=== PATIENT | male | born 1985 | race African-American/Black ===

== ENCOUNTER 2021-02-16 03:01 | Emergency (ER) | payer BC, SELFPAY ==
--- NOTE | ~2021-02-16 | XR_ITS ---
EXAMINATION: XR toe 1st LT min 2V EXAM DATE: 02/16/2021 03:40 INDICATION: Dropped wood block on big toe, bruising. Initial encounter. TECHNIQUE: Frontal, bilateral oblique projections left 1st toe obtained portably and reviewed. The la teral projection. There is no prior study for comparison. FINDINGS: There are no acute left 1st toe fractures or dislocations identified. There is no subcutan eous gas. The soft tissue is unremarkable. There are no radiopaque foreign bodies. IMPRESSION: No acute osseous findings. Reviewed, dictated and finalized at location A. IMPRESSION: No acute osseous findings.
[2021-02-16 03:08] VITALS: BP 140/96; PULSE 70; RESP 16; TEMP 36.7; O2SAT 99
--- NOTE | 2021-02-16 03:30 | PC.NURSE ---
pt ambulatory c slight limp to ED. reports dropping wooden block on his foot while wearing flip flops and attempting to move said block. Pt reports this happened at approx. 1700 yesterday evening. Pt unable to sleep d/t pain, so came to ED. pt's LEFT great toenail with visible discoloration and bruising noted. x-ray completed at bedside as ordered. MD in room at this time. will continue to monitor.
--- NOTE | 2021-02-16 03:38 | ED.LOWEXIN ---
HPI - Extremity Injury (Lower) General Chief Complaint: Extremity Injury, Lower Stated Complaint: dropped block of wood on left foot Time Seen by Provider: 02/16/21 03:23 Source: patient Mode of arrival: ambulatory Limitations: no limitations History of Present Illness HPI Narrative: 36-year-old with no major medical problems here with complaints of left great toe pain. He states that block of wood fell on his great toe having severe pain since last couple hours. He denies any other injuries. MD complaint: foot injury Injury: Left: toes Type of Injury: blunt Place: work Severity: moderate Relieving factors: nothing Exacerbating factors: nothing Context: direct blow Associated symptoms: swelling and ambulatory Other symptoms: none Related Data Allergies Allergy/AdvReac Type Severity Reaction Status Date / Time No medication allergy Allergy Unknown Uncoded 02/16/21 03:04 Cat Dander AdvReac Intermediate Dyspnea / Uncoded 02/16/21 03:03 SOB Cultivated Oat Pollen AdvReac Intermediate Dyspnea / Uncoded 02/16/21 03:03 SOB Review of Systems Review of Systems: All systems reviewed & are unremarkable except as noted in HPI and below Constitutional: Constitutional: Reports no additional constitutional complaints Eyes: Eyes: Reports no additional eye complaints ENT: Reports system reviewed and no additional complaints, except as documented Cardiovascular: Cardiovascular: Reports no additional cardiovascular complaints Respiratory: Respiratory: Reports no additional respiratory complaints Musculoskeletal: Musculoskeletal: Reports as per HPI Exam Narrative: Exam Narrative: GENERAL: Well-appearing, well-nourished, and in no acute distress. HEAD: Normocephalic, atraumatic. EYES: PERRLA and EOMI. ENT: Nares clear, no rhinorrhea or epistaxis. Mucous membranes moist. NECK: Supple. CHEST: Clear to auscultation. No respiratory distress. HEART: Regular rate and rhythm. No murmur heard. Normal peripheral pulses EXTREMITIES: Normal range of motion. No edema. Subungual hematoma of the left great toe, no deformity no fracture nail SKIN: Warm, dry, no rash. NEURO: No focal deficits. Alert and oriented x3. PSYCH: Normal mood and affect. Course Vital Signs Vital signs: Vital Signs Temperature 36.7 C 02/16/21 03:08 Pulse Rate 70 02/16/21 03:08 Respiratory Rate 16 02/16/21 03:08 Blood Pressure 140/96 H 02/16/21 03:08 Pulse Oximetry 99 06/08/21 03:08 Temperature 36.7 C 02/16/21 03:08 Pulse Rate 70 02/16/21 03:08 Respiratory Rate 16 02/16/21 03:08 Blood Pressure 140/96 H 02/16/21 03:08 Pulse Oximetry 99 02/16/21 03:08 Procedures Other Procedure Procedure 1: Other Procedure: Small bolus made with electrocautery blood drain. Patient tolerated procedure well. Sterile dressing applied. Discharge Plan Discharge Clinical Impression: Subungual hematoma of great toe of left foot Qualifiers: Encounter type: initial encounter Qualified Code(s): S90.212A - Contusion of left great toe with damage to nail, initial encounter Patient Disposition: Home, Self-Care Condition: Stable Instructions: Antibiotic Form Additional Instructions: Take Tylenol or ibuprofen. Follow-up/Referrals: Bill Diamond MD [Physician] - UNKNOWN,DOCTOR [Primary Care Provider] - Time of Disposition: 03:38
== END 2021-02-16 04:14 | disposition home or self-care (01) ==
PROVIDERS: Emergency Provider Family Medicine; PCP Nurse Practitioner Family
DX: S90.212A Contusion of left great toe with damage to nail, initial encounter (principal); W20.8XXA Other cause of strike by thrown, projected or falling object, initial encounter
CPT/HCPCS: 11740; 73660; 99283